=== PATIENT | female | born 1995 | race American Indian/Alaskan Native ===

== ENCOUNTER 2018-11-22 11:44 | Day surgery (SDC) | payer BC, MEDICAID ==
[~2018-11-22 11:44] MED LIST: LACTATED RINGERS 1,000 ML IV SCH; LACTATED RINGERS 1,000 ML ONE
[2018-11-22 12:30] LABS: Hematocrit 36.8 % (30.3-42.9); Hemoglobin 12.3 gm/dl (10.1-14.3)
[2018-11-22] MEDS ORDERED: PROVENTIL IH NR (12:51)
[2018-11-22] MEDS ORDERED: VERSED IV NR (13:00)
--- NOTE | 2018-11-22 13:19 | Anesthesia Consultation ---
Anesthesia Consult and Med Hx - Airway Anesthetic Teeth Evaluation: Good ROM Head & Neck: Adequate Mental/Hyoid Distance: Adequate Mallampati Class: Class II Intubation Access Assessment: Probably Good - Pulmonary Exam CTA: Yes - Cardiac Exam Cardiac Exam: RRR - Pre-Operative Health Status ASA Pre-Surgery Classification: ASA1 Proposed Anesthetic Plan: General - Pulmonary Hx Smoking: Yes (marijuana) Hx Asthma: No Hx Respiratory Symptoms: Yes (current cough attributed to seasonal allergies; no fevers, chills, SOB) - Cardiovascular System Hx Hypertension: No Hx Heart Attack/AMI: No Hx Percutaneous Transluminal Coronary Angioplasty (PTCA): No Hx Cardia Arrhythmia: No - Central Nervous System Hx Seizures: No CVA: No Hx Psychiatric Problems: No - Gastrointestinal Hx Gastroesophageal Reflux Disease: No - Endocrine Hx Renal Disease: No Hx Liver Disease: No Hx Insulin Dependent Diabetes: No Hx Non-Insulin Dependent Diabetes: No Hx Thyroid Disease: No - Hematic Hx Anemia: No - Other Systems Hx Alcohol Use: Yes (Occas) Hx Substance Use: Yes (Marijuana occas) Hx Obesity: No - Additional Comments Anesthesia Medical History Comments: No hx anesthetic complications. 5 weeks spont .
[2018-11-22] MEDS ORDERED: SUBLIMAZE IV PRN (13:20)
--- NOTE | 2018-11-22 13:20 | Anesthesia Day of Surgery ---
Anesthesia Day of Surgery - Day of Surgery Patient Examined: Yes Patient H&P Reviewed: Yes Patient is NPO: Yes
[2018-11-22] MEDS ORDERED: DIPRIVAN 10 MG/ML IV ONE (13:53)
[2018-11-22] MEDS ORDERED: SUBLIMAZE ONE (14:00)
[2018-11-22] MEDS ORDERED: NACL 0.9% IR ONE (14:28)
[2018-11-22] MEDS ORDERED: METHERGINE IM ONE ×2 (14:28→14:29)
[2018-11-22] MEDS ORDERED: HEMABATE IM ONE ×2 (14:39)
[2018-11-22] MEDS ORDERED: TORADOL ONE (14:44)
--- NOTE | 2018-11-22 15:02 | Operative Report ---
Operative Report Operative Report: Operative Report: Preoperative diagnosis: 1. Missed . Postoperative diagnosis: same as preoperative diagnosis. Procedure: Suction D&C Surgeon: Dr. Black Entry Manager: none Anesthesia: General. EBL: 100 cc IVF: RL 1 liter Complications: none Procedure details: The risks, benefits, and alternatives of the procedure were discussed in detail with the patient which included but not limited to infection, hemorrhage requiring a, and uterine perforation. The patient expressed understanding, her questions answered, and she gave informed consent. The patient was taken to the operating room with an IVF infusing Ringer's lactate. In the operating room, she was placed in the dorsal supine position and given general anesthesia. Then, she was placed on the stirrups in a dorsal lithotomy position. The perineum vagina and cervix were washed and she was prepared and draped in the usual sterile fashion. Examination under anesthesia revealed normal external genitalia and vagina, the cervix was closed, long, posterior, no bleeding, he uterus was enlarged to 11-wk size, anteverted, mobile. The adnexae were nonpalpable. A weighted speculum was placed placed on the posterior vaginal wall. The anterior lip of the cervix was grasped with a single-tooth tenaculum. The cervical os was dilated, a 9-mm suction curette was connected to the suction device and introduced into the uterine cavity. It was rotated and moderate amount of tissues was suctioned. A gentle curettage was performed until a gritty texture was noticed. The suction device was re- introduced into the uterine cavity and was rotated to remove the remaining products of conception. The instruments were then removed from the uterine cavity. The count of laps, needles, sponges, and instrument were correct 2. The patient tolerated the procedure well. She was awakened from the anesthesia and taken to the recovery room in a stable condition.
[2018-11-22 16:24] VITALS: BP 115/68
--- NOTE | 2018-11-22 18:24 | Post Anesthesia Evaluation ---
- Post Anesthesia Evaluation Patient Participated: Yes Airway Patent: Yes Stable Respiratory Function: Yes Nausea/Vomiting: No Temp > 96.8F: Yes Pain Manageable: Yes Adequeate Hydration: Yes Anesthesia Complications: No
== END 2018-11-22 16:30 | disposition home or self-care (01) ==
LOC: OR 11:44
PROVIDERS: ATTEND Obstetrics & Gynecology
DX: O02.1 Missed abortion (principal); G43.909 Migraine, unspecified, not intractable, without status migrainosus; Z79.899 Other long term (current) drug therapy; Z98.891 History of uterine scar from previous surgery; Z72.89 Other problems related to lifestyle; Z98.890 Other specified postprocedural states
CPT/HCPCS: 36415; 59820; 85014; 85018; 86900; 86901; 88305; J1885; J2210; J2250; J2704; J3010; J7120